=== PATIENT | male | born 1965 | race Caucasian/White ===

== ENCOUNTER 2024-12-16 13:00 | Inpatient (IN) | payer OTHER ==
[2024-12-16 14:54] VITALS: BMI 26.6
[2024-12-16] MEDS ORDERED: NICOTINE POLACRILEX 2 MG GUM BUC PRN (15:11)
[2024-12-16] MEDS ORDERED: MAGNESIUM HYDROX 2400MG/30ML ORAL SUSPENSION 30 ML CUP PO PRN (15:11)
[2024-12-16] MEDS ORDERED: IBUPROFEN 400 MG TABLET (FP) PO PRN (15:11)
[2024-12-16] MEDS ORDERED: MAG HYDROX/AL HYDROX/SIMETH 30 ML UNIT-DOSE CUP PO PRN (15:11)
[2024-12-16] MEDS ORDERED: NICOTINE POLACRILEX 2 MG LOZENGE BC PRN (15:11)
[2024-12-16] MEDS ORDERED: NALOXONE (NARCAN) HCL 4 MG/0.1 ML SPRAY NS PRN (15:11)
[2024-12-16] MEDS ORDERED: guaiFENesin 600 MG TABLET.ER (FP) PO PRN (15:11)
[2024-12-16] MEDS ORDERED: ACETAMINOPHEN 325 MG TABLET (FP) PO PRN (15:11)
[2024-12-16] MEDS ORDERED: LOPERAMIDE HCL 2 MG CAPSULE PO PRN (15:11)
[2024-12-16] MEDS ORDERED: POLYETHYLENE GLYCOL (HEALTHYLAX) 3350 17 GM PACKET PO PRN (15:11)
[2024-12-16] MEDS ORDERED: BENZONATATE 200 MG CAPSULE PO PRN (15:11)
[2024-12-16] MEDS ORDERED: BENZOCAINE/MENTHOL (CHLORASEPTIC ) LOZENGE MM PRN (15:11)
[2024-12-16 20:47] LABS: EPI CELLS 7 /uL (0-25.1); HYALINE CASTS 2 /uL (0-3.1); PH,URINE 5.5 (5.0-8.0); URINE APPEARANCE TURBID; URINE BACTERIA 6679 /uL (0-1359); URINE BILIRUBIN NEGATIVE (NEGATIVE); URINE COLOR YELLOW; URINE GLUCOSE (UA) NEGATIVE (NEGATIVE); URINE KETONE TRACE (NEGATIVE); URINE LEUK ESTERASE 3+ (NEGATIVE); URINE NITRITE POSITIVE (NEGATIVE); URINE PROTEIN 2+ (NEGATIVE); URINE RBC 66 /uL (0-23.9); URINE WBC 5691 /uL (0-25.8)
[2024-12-16] MEDS: DOCUSATE SODIUM 100 MG CAPSULE (FP) PO ONE (21:23)
[2024-12-16] MEDS: THIAMINE 100 MG TABLET PO SCH (21:23)
[2024-12-16] MEDS: MELATONIN 5 MG TABLETS PO SCH (21:23)
[2024-12-17] MEDS: metFORMIN HCL 500 MG TABLET (FP) PO SCH (07:50)
[2024-12-17] MEDS: PANTOPRAZOLE 40 MG TABLET PO SCH (09:13)
[2024-12-17] MEDS: PRENATAL VITAMINS W/ FOLIC ACID TABLET (FP) PO SCH (09:13)
[2024-12-17 12:03] LABS: HEMATOCRIT 33.8 % (35.4-49); HEMOGLOBIN 11.3 GM/dL (11.7-16.9); MCH 32.1 pg (25.7-33.7); MCHC 33.4 g/dl (32.0-35.9); MEAN PLT VOLUME 7.7 fl (7.5-11.1); PLATELET COUNT 293 10^3/uL (134-434); RBC 3.52 M/mm3 (4.00-5.60); RDW 14.6 % (11.9-15.9); WHITE BLOOD COUNT 7.2 K/mm3 (4.0-10.0)
[2024-12-17 12:04] LABS: POTASSIUM 3.2 mmol/L (3.5-5.1)
[2024-12-17 12:13] LABS: ALBUMIN 2.6 g/dl (3.4-5.0); CALCIUM 8.5 mg/dL (8.5-10.1)
[2024-12-17 12:16] LABS: CREATININE 0.9 mg/dL (0.55-1.3)
[2024-12-17 12:18] LABS: BILIRUBIN,TOTAL 0.7 mg/dL (0.2-1); TOT PROT 5.7 g/dl (6.4-8.2)
[2024-12-17 12:45] LABS: SYPHILIS W/ RPR CONF NON-REACTIVE (NONREACTIVE)
[2024-12-17 13:14] LABS: HCV DIAGNOSTIC IN-HOUSE W/RFLX NON-REACTIVE (NONREACTIVE)
[2024-12-17] MEDS: SACUBITRIL/VALSARTAN 97 MG-103 MG TABLET PO SCH (21:29)
[2024-12-17] MEDS: SULFAMETHOXAZOLE/TRIMETHOPRIM 800MG/160MG D.S. TABLET PO SCH (21:29)
[2024-12-18 00:03] LABS: EPI CELLS 2 /uL (0-25.1); HYALINE CASTS 0 /uL (0-3.1); PH,URINE 6.5 (5.0-8.0); URINE APPEARANCE CLOUDY; URINE BACTERIA 4617 /uL (0-1359); URINE BILIRUBIN NEGATIVE (NEGATIVE); URINE COLOR YELLOW; URINE GLUCOSE (UA) NEGATIVE (NEGATIVE); URINE KETONE NEGATIVE (NEGATIVE); URINE LEUK ESTERASE 2+ (NEGATIVE); URINE NITRITE POSITIVE (NEGATIVE); URINE PROTEIN 1+ (NEGATIVE); URINE RBC 30 /uL (0-23.9); URINE WBC 1551 /uL (0-25.8)
[2024-12-18] MEDS: SPIRONOLACTONE 25 MG TABLET PO SCH (10:44)
[2024-12-18] MEDS: amLODIPine BESYLATE 2.5 MG TABLET (FP) PO SCH (12:21)
[2024-12-19] MEDS: hydrOXYzine PAMOATE 25 MG CAPSULE (FP) PO PRN (21:10)
[2024-12-20 09:33] LABS: POTASSIUM 3.4 mmol/L (3.5-5.1)
[2024-12-20 09:44] LABS: HEMATOCRIT 37.4 % (35.4-49); HEMOGLOBIN 12.6 GM/dL (11.7-16.9); MCH 32.2 pg (25.7-33.7); MCHC 33.7 g/dl (32.0-35.9); MEAN CELL VOLUME 95.6 fl (80-96); MEAN PLT VOLUME 7.7 fl (7.5-11.1); PLATELET COUNT 340 10^3/uL (134-434); RBC 3.91 M/mm3 (4.00-5.60); RDW 14.4 % (11.9-15.9); WHITE BLOOD COUNT 6.7 K/mm3 (4.0-10.0)
[2024-12-20 09:47] LABS: CALCIUM 8.4 mg/dL (8.5-10.1)
[2024-12-20 09:48] LABS: BLOOD UREA NITROGEN 13.5 mg/dL (7-18)
[2024-12-20 09:50] LABS: CREATININE 0.9 mg/dL (0.55-1.3)
[2024-12-20 09:51] LABS: MAGNESIUM 1.3 mg/dL (1.8-2.4)
[2024-12-20 09:52] LABS: BILIRUBIN,TOTAL 0.4 mg/dL (0.2-1); TOT PROT 6.3 g/dl (6.4-8.2)
[2024-12-20 10:30] LABS: ANISOCYTOSIS 0; HELMET CELLS 0; HOWELL-JOLLY BODIES 0; MACROCYTOSIS 0; OVALOCYTE 0; ROULEAU 0; SICKELED CELLS 0; TARGET CELLS 0; TEAR DROP CELLS 0; TOXIC GRANULATION 0
[2024-12-23] MEDS: MELATONIN 5 MG TABLETS PO SCH (21:03)
[2024-12-24] MEDS: IBUPROFEN 600 MG TABLET (FP) PO PRN (16:16)
[2024-12-25] MEDS: NALTREXONE HCL 50 MG TABLET PO ONE (15:53)
[2024-12-25] MEDS: MAGNESIUM OXIDE 400 MG TABLET (FP) PO SCH (15:53)
[2024-12-26] MEDS: NALTREXONE HCL 50 MG TABLET PO SCH (09:51)
[2024-12-30 05:31] VITALS: RESP 18; TEMP 97.7
[2024-12-30 09:02] VITALS: BP 108/70; PULSE 110
== END 2024-12-30 09:47 | disposition home or self-care (01) | DRG 772 ==
LOC: YASAS 13:00 → Y3NR 17:05 → Y3W 12-17 10:37
PROVIDERS: ADMIT Psychiatry & Neurology Pain Medicine; ATTEND Psychiatry & Neurology Pain Medicine
PROC: HZ42ZZZ Group Counseling for Substance Abuse Treatment, Cognitive-Behavioral (ICD-10-PCS; principal; 2024-12-16)
DX: F10.20 Alcohol dependence, uncomplicated (principal); F32.A Depression, unspecified; F19.282 Other psychoactive substance dependence with psychoactive substance-induced sleep disorder; I11.0 Hypertensive heart disease with heart failure; I50.9 Heart failure, unspecified; K21.9 Gastro-esophageal reflux disease without esophagitis; E11.9 Type 2 diabetes mellitus without complications; Z79.84 Long term (current) use of oral hypoglycemic drugs; N39.0 Urinary tract infection, site not specified; B96.1 Klebsiella pneumoniae [K. pneumoniae] as the cause of diseases classified elsewhere; B96.20 Unspecified Escherichia coli [E. coli] as the cause of diseases classified elsewhere; E87.6 Hypokalemia; E83.51 Hypocalcemia; E83.42 Hypomagnesemia; Z87.891 Personal history of nicotine dependence
CPT/HCPCS: 36415; 80053; 80305; 80307; 81003; 82652; 82962; 83735; 85025; 85027; 86780; 86803; 87086; 87186; 87811; 93005; 93010